=== PATIENT | male | born 1995 | race Caucasian/White ===

== ENCOUNTER 2017-06-15 03:14 | Emergency (ER) | payer SELFPAY ==
[2017-06-15] MEDS ORDERED: Lidocaine 2% PF * 5 ML VIAL ONE (03:42)
--- NOTE | 2017-06-15 04:18 | ED ---
Juliano Nguyen Tiffany, scribed for Aranza Johnson MD on 06/15/17 at 0412 . Laceration/Wound HPI - HPI Summary HPI Summary: The patient is a 21 year old M presenting to [facility] c/o laceration to left hand from wire since hours ago. The patient rates the pain 7/10 in severity. Symptoms aggravated by nothing and alleviated by nothing. Patient up to date with tetanus. Denies alcohol or drug use this morning. - History of Current Complaint Stated Complaint: HAND LAC Time Seen by Provider: 06/15/17 03:31 Hx Obtained From: Patient Onset/Duration: Lasting Hours, Still Present Current Severity: Moderate Pain Intensity: 7 Pain Scale Used: 0-10 Numeric Associated Signs & Symptoms: Negative - Alcohol or drug use - Allergy/Home Medications Allergies/Adverse Reactions: Allergies Allergy/AdvReac Type Severity Reaction Status Date / Time amoxicillin Allergy Rash Verified 06/15/17 03:25 PMH/Surg Hx/FS Hx/Imm Hx Previously Healthy: Yes Cardiovascular History: Denies: Hx Pacemaker/ICD Sensory History: Denies: Hx Legally Blind, Hx Vision Problem, Hx Deafness, Hx Hearing Aid, Hx Hearing Problem Opthamlomology History: Denies: Hx Legally Blind EENT History: Denies: Hx Deafness, Hx Hearing Problem, Hx Hearing Aid Psychiatric History: Denies: Hx Panic Disorder, Hx Post Traumatic Stress Disorder - Surgical History Surgery Procedure, Year, and Place: None Infectious Disease History: No Infectious Disease History: Denies: Traveled Outside the [place] in Last 30 Days - Family History Known Family History: Positive: Other - Denies knowledge of relevant family history - Social History Alcohol Use: None Hx Substance Use: No Substance Use Type: Reports: None Hx Tobacco Use: No Smoking Status (MU): Never Smoked Tobacco Review of Systems Constitutional: Negative - Alcohol or drug use Positive: Other - Laceration to left hand All Other Systems Reviewed And Are Negative: Yes Physical Exam - Summary Physical Exam Summary: VITAL SIGNS: Reviewed. GENERAL: Patient is a well-developed and nourished (MALE OR FEMALE) who is lying comfortable in the stretcher. Patient is not in any acute respiratory distress. HEAD AND FACE: No signs of trauma. No ecchymosis, hematomas or skull depressions. No sinus tenderness. EYES: PERRLA, EOMI x 2, No injected conjunctiva, no nystagmus. EARS: Hearing grossly intact. Ear canals and tympanic membranes are within normal limits. MOUTH: Oropharynx within normal limits. NECK: Supple, trachea is midline, no adenopathy, no JVD, no carotid bruit, no c- spine tenderness, neck with full ROM. CHEST: Symmetric, no tenderness at palpation LUNGS: Clear to auscultation bilaterally. No wheezing or crackles. CVS: Regular rate and rhythm, S1 and S2 present, no murmurs or gallops appreciated. ABDOMEN: Soft, non-tender. No signs of distention. No rebound no guarding, and no masses palpated. Bowel sounds are normal. EXTREMITIES: FROM in all major joints, no edema, no cyanosis or clubbing. NEURO: Alert and oriented x 3. No acute neurological deficits. Speech is normal and follows commands. SKIN: 3-cm laceration on palmar surface of left hand underside Triage Information Reviewed: Yes Vital Signs On Initial Exam: Initial Vitals Temp Pulse Resp BP Pulse Ox 98.1 F 75 14 141/103 100 06/15/17 03:25 06/15/17 03:25 06/15/17 03:25 06/15/17 03:25 06/15/17 03:25 Vital Signs Reviewed: Yes Procedures - Laceration/Wound Repair 1 Location: Other - palmar surface of left hand underside Suture Type: Nylon Number of Sutures: 8 - 40 size Layer Closure?: Yes - good homeostasis Sterile Dressing Applied?: Yes Diagnostics - Vital Signs Vital Signs Temp Pulse Resp BP Pulse Ox 06/15/17 03:25 98.1 F 75 14 141/103 100 - Laboratory Lab Statement: Any lab studies that have been ordered have been reviewed, and results considered in the medical decision making process. Laceration Repair Course/Dx - Course Course Of Treatment: 21 year old M c/o laceration to palmar surface of left hand underside from wire since hours ago. Patient up to date with tetanus. Left hand laceration was repaired with sutures. Patient will be discharged and instructed to remove stitches 10-15 days from now. The patient is agreeable with this plan. - Clinical Impression Provider Diagnoses: Laceration of left hand Discharge - Discharge Plan Condition: Stable Disposition: HOME Patient Education Materials: Care For Your Stitches (ED), Laceration (ED) Additional Instructions: Have your stitches removed in 10-15 days. This can be done in the Emergency Department or with your primary care provider. RETURN TO EMERGENCY DEPARTMENT FOR ANY NEW OR WORSENING SYMPTOMS. The documentation as recorded by the Juliano cole Tiffany accurately reflects the service I personally performed and the decisions made by , Aranza Johnson MD.
[2017-06-15 04:55] VITALS: BP 113/98
== END 2017-06-15 04:28 | disposition home or self-care (01) ==
LOC: EDBD → ED 03:14
DX: S61.412A Laceration without foreign body of left hand, initial encounter (principal); W45.8XXA Other foreign body or object entering through skin, initial encounter; Y92.9 Unspecified place or not applicable
CPT/HCPCS: 12001; 99282